=== PATIENT | female | born 1960 | race Caucasian/White ===

== ENCOUNTER 2019-05-13 21:26 | Emergency (ER) | payer MEDICAID, OTHER ==
[~2019-05-13] VITALS: Ht 154.9 cm; Wt 81.6 kg
[2019-05-13 21:41] VITALS: BP 117/84
[2019-05-13] MEDS ORDERED: TDAP [DIPH/PERTUSSIS/TET] 0.5 ML VIAL IM ONE ×2 (22:11→22:30)
== END 2019-05-13 22:20 | disposition home or self-care (01) ==
LOC: ER 21:28
DX: S41.051A Open bite of right shoulder, initial encounter (principal); L03.113 Cellulitis of right upper limb; W54.0XXA Bitten by dog, initial encounter; Y93.89 Activity, other specified; Y92.89 Other specified places as the place of occurrence of the external cause; Y99.8 Other external cause status
CPT/HCPCS: 90715

== ENCOUNTER 2021-07-12 06:25 | Emergency (ER) | payer MEDICAID, OTHER ==
[~2021-07-12] VITALS: Ht 160 cm; Wt 69.9 kg
--- NOTE | 2021-07-12 06:50 | NUR ---
PT WAS BIBSELF WITH C/O 8/10 ABDOMINAL PAIN WHICH BEGAN AT 0300. PATIENT IS AAO X 4, SAID SHE DID NOT TAKE ANY MEDICATIONS. HER LAST MEAL WAS 1900. PATIENT STATES SHE HAS HISTORY OF ABDOMINAL PAIN 3 MONTHS AGO. PATIENT ATTACHED TO MONITOR AND PULSE OX. PT WAS SEEN AND EXAMINED BY DR GARCIA. WILL CONTINUE TO MONITOR AND CARRY OUT MD ORDERS.
--- NOTE | 2021-07-12 06:55 | NUR ---
PT PROVIDED WITH WARM BLANKETS FOR COMFORT.
[2021-07-12] MEDS ORDERED: KETOROLAC TROMETHAMINE INJ 30 MG/ML VIAL IV ONE (07:00)
[2021-07-12] MEDS ORDERED: IV NS 0.9% 1,000 ML BAG IV ONE (07:00)
--- NOTE | 2021-07-12 07:00 | NUR ---
IV LINE ESTABLISHED AT RAC 22G, BLOOD DRAWN AND SENT TO LAB
[2021-07-12] MEDS ORDERED: KETOROLAC TROMETHAMINE 15 MG/ML VIAL ONE (07:01)
[2021-07-12 07:25] LABS: BASOPHILS # (AUTO) 0.1 K/uL (0.0-0.2); BASOPHILS % (AUTO) 0.9 % (0.0-2.0); EOSINOPHILS % (AUTO) 2.6 % (0.0-6.0); HEMATOCRIT 36 % (33-45); HEMOGLOBIN 12.3 g/dL (11.5-14.8); LYMPHOCYTES # (AUTO) 2.5 K/uL (0.8-4.8); LYMPHOCYTES % (AUTO) 25.9 % (20.0-44.0); MEAN CORPUSCULAR HGB CONC 34 g/dl (31.0-36.0); MEAN CORPUSCULAR VOLUME 83 fL (82-100); MONOCYTES # (AUTO) 0.5 K/uL (0.1-1.30); MONOCYTES % (AUTO) 5.6 % (2.0-12.0); NEUTROPHILS # (AUTO) 6.3 K/uL (1.8-8.9); PLATELET COUNT (AUTO) 251 K/uL (150-450); RED BLOOD CELL COUNT(AUTO) 4.36 MIL/uL (4.0-5.2); WHITE BLOOD COUNT (AUTO) 9.7 K/uL (4.3-11.0)
--- NOTE | 2021-07-12 07:34 | NUR ---
URINE COLLECTED AND SENT TO LAB
--- NOTE | 2021-07-12 07:42 | NUR ---
US AT BEDSIDE
[2021-07-12 07:57] LABS: BILIRUBIN,URINE NEGATIVE (NEGATIVE); COLOR,URINE YELLOW (YELLOW); LEUKOCYTE ESTERASE ,URINE NEGATIVE (NEGATIVE); NITRITE, URINE NEGATIVE (NEGATIVE); PROTEIN,URINE NEGATIVE (NEGATIVE); UGLUCOSE NEGATIVE (NEGATIVE); UROBILINOGEN,URINE 0.2 EU/dL (0.2)
[2021-07-12] MEDS ORDERED: HYDR-3980 PO (08:20)
[2021-07-12 08:40] LABS: CALCIUM, SERUM 8.6 mg/dL (8.5-10.1); CREATININE 0.8 mg/dL (0.6-1.3)
[2021-07-12 08:41] LABS: RBC,URINE 0-2 /HPF (0-2); WBC,URINE 0-2 /HPF (0-3)
[2021-07-12 08:42] LABS: BACTERIA,URINE None seen /HPF (None Seen); SQUAMOUS EPITHELIAL CELL,UR 0-2 /HPF (None Seen)
[2021-07-12 08:46] LABS: ALBUMIN 3.8 g/dL (3.4-5.0); BILIRUBIN,DIRECT 0.1 mg/dL (0.0-0.2); BILIRUBIN,TOTAL 0.3 mg/dL (0.2-1.0); TOTAL PROTEIN, SERUM 7.9 g/dL (6.4-8.2)
--- NOTE | 2021-07-12 09:01 | NUR ---
IV removed. Catheter intact and site benign. Pressure and 4x4 applied to site. No bleeding noted.Patient discharged to home in stable condition. Written and verbal after care instructions given. Patient verbalizes understanding of instruction.
[2021-07-12 09:02] VITALS: BP 122/63
== END 2021-07-12 09:02 | disposition home or self-care (01) ==
LOC: ER 06:28
DX: K80.50 Calculus of bile duct without cholangitis or cholecystitis without obstruction (principal); I10 Essential (primary) hypertension; Z98.890 Other specified postprocedural states; Z79.899 Other long term (current) drug therapy
CPT/HCPCS: 36415; 76705; 80048; 80076; 81001; 83690; 85025; 96361; 96374; 99284; J1885; J7030

== ENCOUNTER 2025-08-30 09:56 | Emergency (ER) | payer MEDICARE, OTHER ==
[~2025-08-30] VITALS: Ht 160 cm; Wt 83.9 kg
[~2025-08-30 09:56] MED LIST: HYDR-3980 PO
[2025-08-30 10:31] LABS: PLATELET COUNT (AUTO) 269 K/uL (150-450); RED BLOOD CELL COUNT(AUTO) 4.69 MIL/uL (4.0-5.2); RED CELL DISTRIBUTION WIDTH 13.4 % (11.5-15.0); WHITE BLOOD COUNT (AUTO) 9.1 K/uL (4.3-11.0)
[2025-08-30 10:37] LABS: CALCIUM, SERUM 8.9 mg/dL (8.5-10.1); CREATININE 0.6 mg/dL (0.6-1.3); SODIUM SERUM 138.0 mmol/L (136-145); UREA NITROGEN, BLOOD 19.0 mg/dL (7-18)
[2025-08-30] MEDS ORDERED: ONDANSETRON HCL/PF 4 MG/2 ML VIAL ONE (10:37)
[2025-08-30] MEDS ORDERED: MAG HYDROX/AL HYDROX/SIMETH 30 ML UDC ONE (10:38)
[2025-08-30] MEDS ORDERED: LIDOCAINE VISCOUS 2% UD 15 ML UDC ONE (10:38)
[2025-08-30] MEDS ORDERED: FAMOTIDINE/PF INJ 20 MG/2 ML VIAL IV ONE (10:38)
[2025-08-30] MEDS: ONDANSETRON HCL/PF 4 MG/2 ML VIAL IVP ONE (10:48)
[2025-08-30] MEDS: FAMOTIDINE/PF INJ 20 MG/2 ML VIAL IV ONE (10:48)
[2025-08-30 10:54] LABS: ASPARTATE AMINOTRANSFERASE 12.0 U/L (15-37); TOTAL PROTEIN, SERUM 7.8 g/dL (6.4-8.2)
[2025-08-30] MEDS: MAG HYDROX/AL HYDROX/SIMETH 30 ML UDC PO ONE (10:55)
[2025-08-30] MEDS: LIDOCAINE VISCOUS 2% UD 15 ML UDC MM ONE (10:55)
[2025-08-30 11:30] LABS: APPEARANCE,URINE CLEAR (CLEAR); BLOOD, URINE TRACE-INTA Ery/uL (NEGATIVE); LEUKOCYTE ESTERASE ,URINE NEGATIVE (NEGATIVE); NITRITE, URINE NEGATIVE (NEGATIVE); UGLUCOSE NEGATIVE (NEGATIVE)
[2025-08-30] MEDS ORDERED: MORPHINE SULFATE INJ 4 MG/ML DISP.SYRIN ONE (11:51)
[2025-08-30] MEDS: MORPHINE SULFATE INJ 2 MG/ML DISP.SYRIN IV ONE (11:56)
[2025-08-30 11:59] LABS: ADD URINE CULTURE NO; SQUAMOUS EPITHELIAL CELL,UR Few /HPF (None Seen)
[2025-08-30] MEDS ORDERED: HYDR-4303 PO (12:10)
[2025-08-30] MEDS ORDERED: FAMO-131 PO (12:10)
[2025-08-30] MEDS ORDERED: ONDA4TAB5 PO (12:10)
[2025-08-30] MEDS ORDERED: NALO4SPR BNOSTRILS (12:11)
[2025-08-30 12:15] VITALS: BP 133/75; TEMP 97.9; O2SAT 98
== END 2025-08-30 12:36 | disposition home or self-care (01) ==
LOC: ER 10:04
DX: K80.20 Calculus of gallbladder without cholecystitis without obstruction (principal); Z90.710 Acquired absence of both cervix and uterus; Z91.048 Other nonmedicinal substance allergy status
CPT/HCPCS: 99285; 96374; 76705; 96375; 71045; 93005; 85025; 80048; 83690; 80076; 81001; 36415; J2270; J1308; J2405